=== PATIENT | female | born 2000 | race Caucasian/White ===

== ENCOUNTER 2025-03-24 00:35 | Emergency (ER) | payer BC, OTHER ==
--- NOTE | 2025-03-24 01:07 | EDPHYS ---
Physician Documentation [facility] Name: Leslie Hernández Age: 24 yrs Sex: Female : 2000 Arrival Date: 03/24/2025 Time: 00:35 Bed 6 Private MD: ED Physician Darnell Ruth HPI: 03/24 00:55 This 24 yrs old Female presents to ER via Ambulatory with complaints of Head cp Injury-Adult. 00:55 The patient or guardian reports injury. The complaints affect the right temporal area. cp Context of injury: resulted from a direct blow, patient reports bending over and as she stood up, struck right side of head against metal edge. 00:55 Onset: The symptoms/episode began/occurred 2 day(s) ago. Patient requesting note to cp return to work. Historical: - Allergies: 01:09 No Known Allergies; ha1 - PMHx: 01:09 None; ha1 - Immunization history:: Adult Immunizations up to date. - Infectious Disease History:: Denies. - Social history:: Smoking status: Reported history of juuling and/or vaping. ROS: 01:00 Constitutional: history per hpi cp Exam: 01:01 Constitutional: The patient appears in no acute distress, alert, awake, well developed, cp well nourished, 01:01 Head/face: Noted is contusion, that is superficial, of the right temporal area, cp swelling, that is mild, tenderness, that is mild, 01:01 Eyes: Pupils: equal, round, and reactive to light and accomodation, Conjunctiva: normal, no exudate, no injection, Sclera: no appreciated abnormality, Lids and lashes: appear normal, bilaterally, 01:01 Neck: C-spine: vertebral tenderness, is not appreciated, crepitus, is not appreciated, ROM/movement: is normal, is supple, without pain, no range of motions limitations, 01:01 Chest/axilla: Inspection: normal, 01:01 Cardiovascular: Rate: normal, 01:01 Respiratory: the patient does not display signs of respiratory distress, Respirations: normal, no use of accessory muscles, no retractions, labored breathing, is not present, Breath sounds: are clear throughout, 01:01 Abdomen/GI: Inspection: abdomen appears normal, 01:01 Back: pain, is absent, ROM is normal, 01:01 Neuro: Orientation: to person, place \T\ time. Mentation: is normal, Cerebellar function: is grossly normal, Motor: moves all fours, strength is normal, Gait: is steady, at a normal pace, without difficulty, Vital Signs: 00:45 BP 106 / 79; Pulse 68; Resp 18 S; Temp 97.6(T); Pulse Ox 100% on R/A; Weight 45.81 kg; ha1 Height 5 ft. 1 in. ; 00:45 Body Mass Index 19.08 (45.81 kg, 154.94 cm) ha1 [place] Coma Score: 00:45 Eye Response: spontaneous(4). Motor Response: obeys commands(6). Verbal Response: ha1 oriented(5). Total: 15. 00:55 Eye Response: spontaneous(4). Motor Response: obeys commands(6). Verbal Response: cp oriented(5). Total: 15. MDM: 00:55 Medical Screening Exam initiated cp 01:06 Data reviewed: vital signs, nurses notes, and as a result, I will discharge patient. cp 01:06 Differential diagnosis: Contusion of Hematoma on Laceration of Concussion cerebral cp contusion. Counseling: I had a detailed discussion with the patient and/or guardian regarding the historical points, exam findings, and any diagnostic results supporting the discharge/admit diagnosis, to return to the emergency department if symptoms worsen or persist or if there are any questions or concerns that arise at home. Administered Medications: No medications were administered Disposition: 03/25 00:52 Chart complete. cp Disposition Summary: 03/24/25 01:06 Discharge Ordered Notes: Location: Home cp Problem: new cp Symptoms: have improved cp Condition: Stable cp Diagnosis - Contusion of unspecified part of head, initial encounter cp Followup: cp - With: Private Physician - When: As needed - Reason: Worsening of condition Discharge Instructions: - Discharge Summary Sheet cp - Facial or Scalp Contusion cp - Head Injury, Adult cp - Form - Return To Work cp - Preventing Work-Related Injuries and Illnesses cp - What You Need to Know About Work Site Wellness cp Forms: - Medication Reconciliation Form cp - Antibiotic Education cp - Prescription Opioid Use cp - Patient Portal Instructions cp - Leadership Thank You Letter cp - Work release form vk Signatures: Darnell Carr PA PA cp Eliana Knight, RN RN ha1 Corrections: (The following items were deleted from the chart) 00:49 03/24 00:05 Constitutional: history per hpi cp cp
--- NOTE | 2025-03-24 01:21 | ER ---
Nurse's Notes [facility] Name: Leslie Hernández Age: 24 yrs Sex: Female : 2000 Arrival Date: 03/24/2025 Time: 00:35 Bed 6 Private MD: Diagnosis: Contusion of unspecified part of head, initial encounter Presentation: 03/24 00:45 Chief complaint: Patient states: BUMP MY HEAD TWO DAYS AGO. HEAD LACERATION THAT IS ha1 CLEAN AND DRY. MISSED WORK FOR TWO DAYS NEED WORK RELEASED. 00:45 Coronavirus screen: Client denies travel out of the [place] in the last 14 days. Ebola ha1 Screen: No symptoms or risks identified at this time. Mechanism of Injury: resulted from impacting a hard surface. Initial Sepsis Screen: Does the patient meet any 2 criteria? No. Patient's initial sepsis screen is negative. Does the patient have a suspected source of infection? No. Patient's initial sepsis screen is negative. Risk Assessment: Do you want to hurt yourself or someone else? Patient reports no desire to harm self or others. 00:45 Method Of Arrival: Ambulatory ha1 00:45 Acuity: JEFFREY 4 ha1 01:20 Onset of symptoms was March 22, 2025. 1 Triage Assessment: 01:09 General: Appears comfortable, Behavior is calm, cooperative. Pain: Denies pain. Neuro: ha1 Level of Consciousness is awake, alert, obeys commands, Oriented to person, place, time, situation. Neuro: Reports dizziness, BUMPING HEAD IN A METAL TWO DAYS AGO. Cardiovascular: Capillary refill < 3 seconds Patient's skin is warm and dry. Respiratory: Airway is patent Respiratory effort is even, unlabored, Respiratory pattern is regular, symmetrical. GI: No signs and/or symptoms were reported involving the gastrointestinal system. : No signs and/or symptoms were reported regarding the genitourinary system. Derm: Skin is pink, warm \T\ dry. Musculoskeletal: Circulation, motion, and sensation intact. Range of motion: intact in all extremities. Historical: - Allergies: 01:09 No Known Allergies; ha1 - PMHx: 01:09 None; ha1 - Immunization history:: Adult Immunizations up to date. - Infectious Disease History:: Denies. - Social history:: Smoking status: Reported history of juuling and/or vaping. Screenin:11 [facility] ED Fall Risk Assessment (Adult) History of falling in the last 3 months, ha1 including since admission No falls in past 3 months (0 pts) Confusion or Disorientation No (0 pts) Intoxicated or Sedated No (0 pts) Impaired Gait No (0 pts) Mobility Assist Device Used No (0 pt) Altered Elimination No (0 pt) Score/Fall Risk Level 0 - 2 = Low Risk Oriented to surroundings, Maintained a safe environment, Educated pt \T\ family on fall prevention, incl call for assistance when getting out of bed, Hourly rounding (assess needs \T\ fall precautionary measures) done. Abuse screen: Denies injuries from another. Has been threatened or abused. Nutritional screening: No deficits noted. Tuberculosis screening: No symptoms or risk factors identified. Assessment: 00:45 Reassessment: SEE TRIAGE ASSESSMENT. ha1 Vital Signs: 00:45 BP 106 / 79; Pulse 68; Resp 18 S; Temp 97.6(T); Pulse Ox 100% on R/A; Weight 45.81 kg; ha1 Height 5 ft. 1 in. ; 00:45 Body Mass Index 19.08 (45.81 kg, 154.94 cm) ha1 [place] Coma Score: 00:45 Eye Response: spontaneous(4). Motor Response: obeys commands(6). Verbal Response: ha1 oriented(5). Total: 15. 00:55 Eye Response: spontaneous(4). Motor Response: obeys commands(6). Verbal Response: cp oriented(5). Total: 15. ED Course: 00:42 Patient arrived in ED. gm2 00:43 Darnell Carr PA is PHCP. cp 00:43 Darnell Ruth MD is Attending Physician. cp 00:45 Patient has correct armband on for positive identification. Bed in low position. Call ha1 light in reach. Side rails up X 1. Adult w/ patient. Provided Education on: PLAN OF CARE. 00:45 Client placed on continuous cardiac and pulse oximetry monitoring. NIBP monitoring ha1 applied. hvac commercial salesperson on. 00:45 Arm band placed on right wrist. ha1 01:09 Triage completed. ha1 01:18 Eliana Knight RN is Primary Nurse. ha1 01:18 No provider procedures requiring assistance completed. Patient did not have IV access ha1 during this emergency room visit. Administered Medications: No medications were administered Medication: 01:12 VIS not applicable for this client. ha1 Outcome: 01:06 Discharge ordered by . jean-paul 01:18 Discharged to home ambulatory, with family, ha1 01:18 Condition: stable 01:18 Discharge instructions given to patient, family, Instructed on discharge instructions, follow up and referral plans. Demonstrated understanding of instructions, follow-up care, 01:20 Patient left the ED. ha1 Signatures: Darnell Carr PA PA cp Ayala, Heidy, RN RN ha1 Nikole Christian gm2
[2025-03-24 02:05] VITALS: BP 106/79; TEMP 97.6; O2SAT 100
== END 2025-03-24 01:20 | disposition home or self-care (01) ==
LOC: ER 00:35
DX: S00.83XA Contusion of other part of head, initial encounter (principal); W22.8XXA Striking against or struck by other objects, initial encounter
CPT/HCPCS: 99284